=== PATIENT | female | born 1990 ===

== ENCOUNTER 2017-11-04 06:07 | Inpatient (IN) ==
[2017-11-04] MEDS ORDERED: MEPERIDINE 50 MG/1 ML VIAL IV PRN (07:52)
[2017-11-04] MEDS ORDERED: BUTORPHANOL 2 MG/ML VIAL IV PRN (07:52)
[2017-11-04] MEDS ORDERED: ONDANSETRON 4 MG/2 ML VIAL IV PRN (07:52)
[2017-11-04] MEDS ORDERED: OXYTOCIN/LR 20 UNIT/1,000 ML BAG IV SCH (08:00)
[2017-11-04] MEDS ORDERED: LACTATED RINGERS 1,000 ML IV SCH (08:00)
[2017-11-04 08:12] LABS: Basophils % 0.3 % (0.0-0.8); Eosinophils # 0.1 10*3/uL (0.0-0.87); Eosinophils % 1.4 % (0.00-10.9); Hematocrit 31.4 VOL% (35.7-47.0); Hemoglobin 10.3 GM/DL (12.0-16.0); Immature Granulocytes % 1.7 %; Immature Granulocytes Absolute 0.12 #; Lymphocytes % 28.1 % (21.3-54.2); Mean Corpuscular HGB Conc 32.8 GM/DL (32-36); Mean Corpuscular Hemoglobin 28 PG (27-34); Mean Corpuscular Volume 86.3 FL (87-102); Mean Platelet Volume 9.4 FL (9.6-12.0); Monocytes # 0.8 10*3/uL (0.11-0.8); Monocytes % 11.8 % (1.7-12.7); Neutrophils % 56.7 % (38.7-73.9); Platelet Count 245 T/CUMM (130-400); Red Blood Count 3.64 MC/CUMM (3.8-5.5); Red Cell Distribution Width 14.7 % (9.3-17.3)
[2017-11-04] MEDS ORDERED: AMPICILLIN INJ 2,000 MG in SODIUM CHLORIDE 0.9% 100 ML IV ONE (08:37)
[2017-11-04 08:40] LABS: Alanine Aminotransferase 28 U/L (13-56); Albumin 2.6 G/DL (3.4-5.0); Alkaline Phosphatase 142 U/L (45-117); Aspartate Amino Transferase 27 U/L (0-37); Bilirubin,Total < 0.39 MG/DL (0.2-1.0); Blood Urea Nitrogen 8 MG/DL (7-18); Calcium 8.5 MG/DL (8.5-10.1); Glucose 95 MG/DL (74-106); Osmolality,Calculated 274.5 MOS/KG (273-304); Potassium 4.1 MMOL/L (3.5-5.1); Sodium 139 MMOL/L (136-145); Total Protein 6.3 G/DL (6.4-8.3); Uric Acid 3.6 MG/DL (2.6-6.0)
[2017-11-04] MEDS ORDERED: LACTATED RINGERS 1,000 ML IV ONE (09:39)
[2017-11-04] MEDS ORDERED: FAMOTIDINE 20 MG/2 ML VIAL IV ONE (09:39)
[2017-11-04] MEDS ORDERED: CITRIC ACID/SODIUM CITRATE 30 ML UDCUP PO ONE (09:39)
[2017-11-04] MEDS ORDERED: PROMETHAZINE 25 MG/1 ML VIAL IM ONE (09:40)
[2017-11-04] MEDS ORDERED: ePHEDrine 50 MG/ML AMP IV PRN (09:40)
[2017-11-04] MEDS ORDERED: diphenhydrAMINE 50 MG/1 ML VIAL IV PRN ×2 (09:40)
[2017-11-04] MEDS ORDERED: hydrOXYzine HCL 25 MG/1 ML VIAL IM PRN (09:40)
[2017-11-04] MEDS ORDERED: fentaNYL 2 MCG/ROPIV 0.2% EPID 150 ML EPIDURAL SCH (10:00)
[2017-11-04 13:36] LABS: Apearance,Urine CLEAR (Clear); Bilirubin,Urine Negative (Negative); Blood, Urine Negative (Negative); Glucose,Urine (UA) Negative (Negative); Ketones,Urine Negative (Negative); Mucus,Urine Occasional /LPF (Occasional); Nitrite,Urine Negative (Negative); Protein,Urine Negative; RBC,Urine 3 /HPF (0-4); Squamous Epithelial Cell,Urine Occasional /HPF (0-10); Urine Color Yellow (Yellow); Urine Specific Gravity 1.015 (1.001-1.035); Urine Urobilinogen < 2.0 EU/DL (0.2-1.0); WBC,Urine <1 /HPF (0-6)
[2017-11-04 13:41] LABS: Cord Venous Blood PCO2 41.3 MMHG; Cord Venous Blood PO2 37.7 MMHG
[2017-11-04] MEDS ORDERED: LANOLIN 50% CREAM 0.3 OZ TUBE TOP PRN (16:02)
[2017-11-04] MEDS ORDERED: MEASLES/MUMPS/RUBELLA VACCINE 0.5 ML VIAL SUBCUT ONE (16:02)
[2017-11-04] MEDS ORDERED: ACETAMINOPHEN/CODEINE 300-30 MG TABLET PO PRN (16:02)
[2017-11-04] MEDS ORDERED: BISACODYL 10 MG SUPP RECTAL PRN (16:02)
[2017-11-04] MEDS ORDERED: BENZOCAINE 20%/MENTHOL 0.5% SPRAY 56 GM CAN TOP PRN (16:02)
[2017-11-04] MEDS ORDERED: RHO(D) IMMUNE GLOBULIN 300 MCG SYRINGE IM ONE (16:02)
[2017-11-04] MEDS ORDERED: ACETAMINOPHEN 325 MG TABLET PO PRN (16:02)
[2017-11-04] MEDS ORDERED: DIPH/TET/ACEL PERT BOOSTER VACCINE 0.5 ML VIAL IM ONE (16:02)
[2017-11-04] MEDS ORDERED: HYDROCORTISONE 2.5% RECTAL CREAM 30 GM TUBE TOP PRN (16:02)
[2017-11-04] MEDS ORDERED: oxyCODONE/ACETAMINOPHEN 5-325 MG TABLET PO PRN (16:02)
[2017-11-04] MEDS ORDERED: WITCH HAZEL PADS 100/JAR TOP PRN (16:02)
[2017-11-04] MEDS: IBUPROFEN 800 MG TABLET PO PRN (16:13)
[2017-11-04] MEDS: DOCUSATE SODIUM 100 MG CAPSULE PO SCH (20:41)
[2017-11-05] MEDS: IBUPROFEN 800 MG TABLET PO PRN ×3 (01:49→16:19)
[2017-11-05 06:08] LABS: Basophils % 0.1 % (0.0-0.8); Eosinophils # 0.1 10*3/uL (0.0-0.87); Eosinophils % 1.4 % (0.00-10.9); Hematocrit 27.7 VOL% (35.7-47.0); Hemoglobin 9.3 GM/DL (12.0-16.0); Immature Granulocytes % 1.1 %; Lymphocytes # 2.2 10*3/uL (1.4-4.0); Lymphocytes % 23.9 % (21.3-54.2); Mean Corpuscular HGB Conc 33.6 GM/DL (32-36); Mean Corpuscular Hemoglobin 28 PG (27-34); Mean Corpuscular Volume 83.9 FL (87-102); Mean Platelet Volume 9.4 FL (9.6-12.0); Monocytes # 0.9 10*3/uL (0.11-0.8); Monocytes % 9.3 % (1.7-12.7); NRBC # 0.02 10*3/uL; Neutrophils # 5.9 10*3/uL (1.4-7.4); Neutrophils % 64.2 % (38.7-73.9); Platelet Count 194 T/CUMM (130-400); Red Cell Distribution Width 14.8 % (9.3-17.3); White Blood Count 9.2 T/CUMM (4-12)
[2017-11-05] MEDS: oxyCODONE/ACETAMINOPHEN 5-325 MG TABLET PO PRN ×2 (08:31→16:18)
[2017-11-05] MEDS: DOCUSATE SODIUM 100 MG CAPSULE PO SCH ×2 (08:31→22:20)
[2017-11-06] MEDS: IBUPROFEN 800 MG TABLET PO PRN ×2 (03:03→09:20)
[2017-11-06 07:35] VITALS: BP 147/88
[2017-11-06] MEDS: DOCUSATE SODIUM 100 MG CAPSULE PO SCH (09:20)
== END 2017-11-06 11:45 | disposition home or self-care (01) | DRG 775 ==
LOC: N.LDOUT 06:07 → N.LD 06:55 → N.OB 16:01
PROVIDERS: ADMIT Obstetrics & Gynecology; ATTEND Obstetrics & Gynecology

== ENCOUNTER 2020-10-03 05:42 | Inpatient (IN) ==
[2020-10-03] MEDS ORDERED: ONDANSETRON 4 MG/2 ML VIAL IV PRN (05:48)
[2020-10-03] MEDS ORDERED: LACTATED RINGERS 500 ML IV PRN (05:48)
[2020-10-03] MEDS ORDERED: BUTORPHANOL 2 MG/ML VIAL IV PRN (05:55)
[2020-10-03] MEDS ORDERED: MEPERIDINE 50 MG/1 ML VIAL IV PRN (05:55)
[2020-10-03] MEDS: LACTATED RINGERS 1,000 ML IV SCH ×2 (06:14→10:55)
[2020-10-03 06:22] LABS: Basophils % 0.1 % (0.0-0.8); Eosinophils # 0.1 10*3/uL (0.0-0.87); Eosinophils % 1.3 % (0.00-10.9); Hematocrit 32.8 VOL% (35.7-47.0); Hemoglobin 10.8 GM/DL (12.0-16.0); Immature Granulocytes % 1.3 %; Immature Granulocytes Absolute 0.09 #; Lymphocytes # 1.7 10*3/uL (1.4-4.0); Lymphocytes % 24.9 % (21.3-54.2); Mean Corpuscular HGB Conc 32.9 GM/DL (32-36); Mean Corpuscular Volume 87.2 FL (87-102); Mean Platelet Volume 9.6 FL (9.6-12.0); Monocytes % 10.3 % (1.7-12.7); Neutrophils % 62.1 % (38.7-73.9); Platelet Count 209 T/CUMM (130-400); Red Blood Count 3.76 MC/CUMM (3.8-5.5); Red Cell Distribution Width 14.6 % (9.3-17.3); White Blood Count 6.7 T/CUMM (4-12)
[2020-10-03] MEDS ORDERED: OXYTOCIN/LR 20 UNIT/1,000 ML BAG IV ONE ×2 (06:28→17:34)
[2020-10-03 06:42] LABS: Albumin 2.6 G/DL (3.4-5.0); Bilirubin,Total 0.4 MG/DL (0.2-1.0); Calcium 8.5 MG/DL (8.5-10.1); Osmolality,Calculated 275.5 MOS/KG (273-304); Potassium 3.5 MMOL/L (3.5-5.1); Total Protein 6.7 G/DL (6.4-8.2)
[2020-10-03] MEDS: OXYTOCIN/LR 20 UNIT/1,000 ML BAG IV SCH ×2 (07:37→16:48)
[2020-10-03] MEDS ORDERED: PROMETHAZINE 25 MG/1 ML VIAL IM PRN (07:39)
[2020-10-03] MEDS ORDERED: FAMOTIDINE 20 MG/2 ML VIAL IV ONE (07:39)
[2020-10-03] MEDS ORDERED: CITRIC ACID/SODIUM CITRATE 30 ML UDCUP PO ONE (07:39)
[2020-10-03] MEDS ORDERED: hydrOXYzine HCL 25 MG/1 ML VIAL IM PRN (07:39)
[2020-10-03] MEDS ORDERED: NALOXONE 0.4 MG/ML VIAL IV PRN (07:39)
[2020-10-03] MEDS ORDERED: diphenhydrAMINE 50 MG/1 ML VIAL IV PRN ×2 (07:39)
[2020-10-03] MEDS ORDERED: ePHEDrine 50 MG/ML VIAL IV PRN (07:39)
[2020-10-03] MEDS ORDERED: fentaNYL 2 MCG/ROPIV 0.2% EPID 100 ML EPIDURAL SCH (08:00)
[2020-10-03 11:54] LABS: Bilirubin,Urine Negative (Negative); Blood, Urine Negative (Negative); Glucose,Urine (UA) Negative (Negative); Ketones,Urine Negative (Negative); Mucus,Urine Few /LPF (Occasional); Nitrite,Urine Negative (Negative); Protein,Urine 30 MG/DL; RBC,Urine 4 /HPF (0-4); Squamous Epithelial Cell,Urine Occasional /HPF (0-10); Urine Appearance CLEAR (Clear); Urine Color Yellow (Yellow); Urine Specific Gravity 1.021 (1.001-1.035); Urine Urobilinogen < 2.0 EU/DL (0.2-1.0); WBC,Urine 1 /HPF (0-6)
[2020-10-03] MEDS ORDERED: miSOPROStoL 200 MCG TABLET ONE (11:55)
[2020-10-03] MEDS ORDERED: METHYLERGONOVINE 0.2 MG/1 ML AMP ONE (11:56)
[2020-10-03] MEDS ORDERED: CARBOPROST TROMETHAMINE 250 MCG/ML AMP IM ONE (11:56)
[2020-10-03 14:26] LABS: Cord Venous Blood HCO3 24.8 MMOL/L; Cord Venous Blood PO2 35.6 MMHG
[2020-10-03] MEDS ORDERED: IBUPROFEN 800 MG TABLET PO ONE (16:44)
[2020-10-03] MEDS ORDERED: WITCH HAZEL PADS 100/JAR TOP PRN (17:34)
[2020-10-03] MEDS ORDERED: HYDROCORTISONE 2.5% RECTAL CREAM 30 GM TUBE TOP PRN (17:34)
[2020-10-03] MEDS ORDERED: MEASLES/MUMPS/RUBELLA VACCINE 0.5 ML VIAL SUBCUT ONE (17:34)
[2020-10-03] MEDS ORDERED: ACETAMINOPHEN 325 MG TABLET PO PRN (17:34)
[2020-10-03] MEDS ORDERED: LANOLIN 50% CREAM 0.3 OZ TUBE TOP PRN (17:34)
[2020-10-03] MEDS ORDERED: RHO(D) IMMUNE GLOBULIN 300 MCG SYRINGE IM ONE (17:34)
[2020-10-03] MEDS ORDERED: BENZOCAINE 20%/MENTHOL 0.5% SPRAY 56 GM CAN TOP PRN (17:34)
[2020-10-03] MEDS ORDERED: DIPH/TET/ACEL PERT BOOSTER VACCINE 0.5 ML VIAL IM ONE (17:34)
[2020-10-03] MEDS ORDERED: BISACODYL 10 MG SUPP RECTAL PRN (17:34)
[2020-10-03] MEDS ORDERED: oxyCODONE/ACETAMINOPHEN 5-325 MG TABLET PO PRN (17:34)
[2020-10-03] MEDS: oxyCODONE/ACETAMINOPHEN 5-325 MG TABLET PO PRN (20:03)
[2020-10-03] MEDS: DOCUSATE SODIUM 100 MG CAPSULE PO SCH (21:15)
[2020-10-04] MEDS: IBUPROFEN 800 MG TABLET PO PRN ×3 (03:08→20:48)
[2020-10-04 05:01] LABS: Basophils % 0.2 % (0.0-0.8); Eosinophils # 0.1 10*3/uL (0.0-0.87); Eosinophils % 1.3 % (0.00-10.9); Hematocrit 27.5 VOL% (35.7-47.0); Hemoglobin 9.1 GM/DL (12.0-16.0); Immature Granulocytes % 0.6 %; Immature Granulocytes Absolute 0.06 #; Lymphocytes # 2.2 10*3/uL (1.4-4.0); Lymphocytes % 23.4 % (21.3-54.2); Mean Corpuscular HGB Conc 33.1 GM/DL (32-36); Mean Corpuscular Volume 88.4 FL (87-102); Mean Platelet Volume 9.8 FL (9.6-12.0); Monocytes % 9.3 % (1.7-12.7); Neutrophils % 65.2 % (38.7-73.9); Platelet Count 173 T/CUMM (130-400); Red Blood Count 3.11 MC/CUMM (3.8-5.5); Red Cell Distribution Width 14.8 % (9.3-17.3); White Blood Count 9.4 T/CUMM (4-12)
[2020-10-04] MEDS: oxyCODONE/ACETAMINOPHEN 5-325 MG TABLET PO PRN (06:19)
[2020-10-04] MEDS: DOCUSATE SODIUM 100 MG CAPSULE PO SCH ×2 (09:07→20:48)
[2020-10-05] MEDS: DOCUSATE SODIUM 100 MG CAPSULE PO SCH (08:49)
[2020-10-05] MEDS ORDERED: FERROUS SULFATE 325 MG TABLET PO SCH (09:00)
[2020-10-05 09:10] VITALS: BP 150/88
[2020-10-05] MEDS ORDERED: MAGNESIUM CITRATE 300 ML BOTTLE PO ONE (09:52)
== END 2020-10-05 12:35 | disposition home or self-care (01) | DRG 807 ==
LOC: N.LD 05:42 → N.OB 17:50
PROVIDERS: ADMIT Obstetrics & Gynecology; ATTEND Obstetrics & Gynecology